=== PATIENT | female | born 1980 | race Caucasian/White ===

== ENCOUNTER 2016-08-21 08:21 | Outpatient (CLI) | payer MEDICAID ==
[~2016-08-21] VITALS: Ht 185.4 cm; Wt 87.2 kg
[~2016-08-21 08:21] MED LIST: FAMO20TA37 PO; PREN1TAB60 PO
[2016-08-21 08:35] VITALS: BP 97/61
== END 2016-08-21 10:37 | disposition home or self-care (01) ==
LOC: LDOP 08:21
PROVIDERS: ATTEND Obstetrics & Gynecology
DX: O26.893 Other specified pregnancy related conditions, third trimester (principal); R10.9 Unspecified abdominal pain; R11.2 Nausea with vomiting, unspecified; O99.343 Other mental disorders complicating pregnancy, third trimester; F41.8 Other specified anxiety disorders; F32.9 Major depressive disorder, single episode, unspecified; Z3A.35 35 weeks gestation of pregnancy
CPT/HCPCS: 59025; 81001; 87086; 99211; G0463

== ENCOUNTER → 2016-09-18 | Outpatient (CLI) | payer MEDICAID ==
[~2016-09-18] MED LIST changes: +IBUP-1222 PO; +LIDOCAINE 1%, 20ML ONE; +MISOPROSTOL 200 MCG TABLET ONE; +NEWBORN KIT ONE; +OXYC-302 PO
== END | disposition home or self-care (01) ==
LOC: LDOP 23:46
PROVIDERS: ATTEND Obstetrics & Gynecology
DX: O09.513 Supervision of elderly primigravida, third trimester (principal); O26.893 Other specified pregnancy related conditions, third trimester; R10.9 Unspecified abdominal pain; Z3A.00 Weeks of gestation of pregnancy not specified
CPT/HCPCS: 59025; 89060; 99211; G0463; Q0114

== ENCOUNTER 2016-09-19 12:02 | Inpatient (IN) | payer MEDICAID ==
[~2016-09-19] VITALS: Ht 185.4 cm; Wt 89.5 kg
[~2016-09-19 12:02] MED LIST changes: -IBUP-1222 PO; -LIDOCAINE 1%, 20ML ONE; -MISOPROSTOL 200 MCG TABLET ONE; -NEWBORN KIT ONE; -OXYC-302 PO
[2016-09-19] MEDS: D5%-LACTATED RINGERS 1,000 ML IV SCH ×2 (12:11→20:11)
[2016-09-19] MEDS ORDERED: OXYTOCIN 30U/ 0.9% NaCL 500ML 500 ML IV ONE (12:11)
[2016-09-19] MEDS ORDERED: FENTANYL PF 100 MCG/2ML ONE (12:14)
[2016-09-19] MEDS ORDERED: METOCLOPRAMIDE 5 MG/ML, 2ML IVPush PRN (12:30)
[2016-09-19] MEDS ORDERED: FENTANYL PF 100 MCG/2ML IV PRN (12:30)
[2016-09-19] MEDS ORDERED: FENTANYL PF 100 MCG/2ML IVPush PRN (12:30)
[2016-09-19] MEDS ORDERED: ONDANSETRON 2MG/ML, 2ML IVPush PRN (12:30)
[2016-09-19] MEDS ORDERED: TERBUTALINE 1 MG/ML, 1ML IVPush PRN (12:30)
[2016-09-19] MEDS ORDERED: SODIUM CITRATE/CITRIC ACID 30 ML UDC PO PRN (12:30)
[2016-09-19] MEDS: LACTATED RINGERS 1,000 ML IV SCH ×4 (12:38→22:18)
[2016-09-19] MEDS ORDERED: FENTANYL/BUPIV./NS/PF 250 ML EPIDCONT SCH (14:18)
[2016-09-19] MEDS ORDERED: LACTATED RINGERS 1,000 ML IVBOLUS PRN (14:30)
[2016-09-19] MEDS ORDERED: NALOXONE 0.4 MG/ML, 1ML IVPush PRN (14:30)
[2016-09-19] MEDS ORDERED: EPHEDRINE 50 MG/ML, 1ML IVPush PRN (14:30)
[2016-09-19] MEDS ORDERED: OXYTOCIN 30U/ 0.9% NaCL 500ML 500 ML IV PRN (16:00)
[2016-09-19] MEDS ORDERED: OXYTOCIN 30U/ 0.9% NaCL 500ML 500 ML ONE (16:12)
[2016-09-19] MEDS ORDERED: LACTATED RINGERS 1,000 ML INTUTE PRN (19:30)
[2016-09-19] MEDS ORDERED: LACTATED RINGERS 1,000 ML INTUTE SCH (19:30)
[2016-09-20] MEDS ORDERED: OXYTOCIN 30U/ 0.9% NaCL 500ML 500 ML IV SCH (01:51)
[2016-09-20] MEDS ORDERED: OXYcodone/APAP 5/325MG TABLET PO PRN (02:00)
[2016-09-20] MEDS ORDERED: ONDANSETRON 2MG/ML, 2ML IV PRN (02:00)
[2016-09-20] MEDS ORDERED: DOCUSATE 100 MG CAPSULE PO PRN (02:00)
[2016-09-20] MEDS ORDERED: ACETAMINOPHEN 325 MG TABLET PO PRN (02:00)
[2016-09-20] MEDS ORDERED: MISOPROSTOL 200 MCG TABLET SL PRN (02:00)
[2016-09-20] MEDS ORDERED: OXYTOCIN 30U/ 0.9% NaCL 500ML 500 ML ONE (02:08)
[2016-09-20] MEDS ORDERED: IBUPROFEN 600 MG TABLET ONE (02:24)
[2016-09-20] MEDS ORDERED: OXYcodone/APAP 5/325MG TABLET ONE (02:24)
[2016-09-20] MEDS: IBUPROFEN 600 MG TABLET PO PRN ×3 (02:30→18:33)
[2016-09-20 03:30] VITALS: BP 96/53
[2016-09-20] MEDS: PRENATAL VIT/IRON/FA 1 EACH TABLET PO SCH (07:38)
[2016-09-20 07:55] VITALS: BP 100/55
[2016-09-20 09:03] LABS: HEMOGLOBIN 10.7 g/dL (11.7-16.4)
[2016-09-20] MEDS: OXYcodone/APAP 5/325MG TABLET PO PRN ×2 (09:19→18:33)
[2016-09-20 09:32] LABS: DIFF TOTAL CELLS COUNTED 100 CELL DIFF
[2016-09-20 09:34] LABS: VERIFY COUNTS? YES
[2016-09-20 12:00] VITALS: BP 92/52
[2016-09-20 17:00] VITALS: BP 96/57
[2016-09-20 20:22] VITALS: BP 95/53
[2016-09-21] MEDS: IBUPROFEN 600 MG TABLET PO PRN ×2 (03:27→16:13)
[2016-09-21 07:45] VITALS: BP 94/51
[2016-09-21] MEDS: OXYcodone/APAP 5/325MG TABLET PO PRN ×2 (07:51→16:13)
[2016-09-21] MEDS: PRENATAL VIT/IRON/FA 1 EACH TABLET PO SCH (07:51)
[2016-09-21] MEDS ORDERED: IBUP-1222 PO (12:35)
[2016-09-21] MEDS ORDERED: OXYC-302 PO (12:35)
== END 2016-09-21 16:32 | disposition home or self-care (01) | DRG 775 ==
LOC: LDOP 12:02 → LDIP 12:11 → 2NW 09-20 03:29
PROVIDERS: ADMIT Obstetrics & Gynecology; ATTEND Obstetrics & Gynecology
PROC: 10D07Z6 Extraction of Products of Conception, Vacuum, Via Natural or Artificial Opening (ICD-10-PCS; principal; 2016-09-19)
PROC: 0W8NXZZ Division of Female Perineum, External Approach (ICD-10-PCS; 2016-09-19)
PROC: 10907ZC Drainage of Amniotic Fluid, Therapeutic from Products of Conception, Via Natural or Artificial Opening (ICD-10-PCS; 2016-09-19)
PROC: 00HU33Z Insertion of Infusion Device into Spinal Canal, Percutaneous Approach (ICD-10-PCS; 2016-09-19)
PROC: 3E0R3CZ (ICD-10-PCS; 2016-09-19)
DX: O75.81 Maternal exhaustion complicating labor and delivery (principal); O76 Abnormality in fetal heart rate and rhythm complicating labor and delivery; O69.1XX0 Labor and delivery complicated by cord around neck, with compression, not applicable or unspecified; Z37.0 Single live birth; Z3A.40 40 weeks gestation of pregnancy; Z88.6 Allergy status to analgesic agent; Z88.5 Allergy status to narcotic agent
CPT/HCPCS: 36415; 85025; 86850; 86900; J3010; J2590; J7120

== ENCOUNTER 2017-02-10 23:44 | Emergency (ER) | payer MEDICAID ==
[~2017-02-10] VITALS: Ht 185.4 cm; Wt 80.1 kg
[~2017-02-10 23:44] MED LIST changes: +IBUP-1222 PO; +OXYC-302 PO
[2017-02-11] MEDS ORDERED: IBUPROFEN 200 MG TABLET ONE (00:21)
[2017-02-11] MEDS ORDERED: IBUPROFEN 200 MG TABLET PO ONE (00:30)
[2017-02-11 00:37] LABS: HEMATOCRIT 42.4 % (34.6-47.8); HEMOGLOBIN 14.3 g/dL (11.7-16.4); WHITE BLOOD COUNT 5.8 x10^3/uL (3.4-10)
[2017-02-11 00:50] LABS: BLOOD UREA NITROGEN 12 mg/dL (7-18)
[2017-02-11 01:01] LABS: PATH.CAST-FLAG NOT PRESENT; SPERM-FLAG NOT PRESENT; SRC-FLAG NOT PRESENT; XTAL-FLAG NOT PRESENT; YLC-FLAG NOT PRESENT
[2017-02-11 01:36] VITALS: BP 94/57
== END 2017-02-11 02:17 | disposition home or self-care (01) ==
LOC: ED 02-11 00:48
DX: N83.202 Unspecified ovarian cyst, left side (principal); N93.8 Other specified abnormal uterine and vaginal bleeding
CPT/HCPCS: 36415; 76830; 80048; 81001; 82040; 84703; 85025; 99285

== ENCOUNTER 2017-11-18 09:44 | Emergency (ER) | payer MEDICAID ==
[~2017-11-18] VITALS: Ht 185.4 cm; Wt 80.5 kg
[2017-11-18 10:24] LABS: BASOPHILS % (AUTO) 0 % (0-1); EOSINOPHILS % (AUTO) 1 % (1-7); LYMPHOCYTES # (AUTO) 0.37 x10^3/uL (1-3.4); LYMPHOCYTES % (AUTO) 4 % (22-44); MD NO; MEAN CORPUSCULAR HEMOGLOBIN 31.3 pg (27.0-34.8); MEAN CORPUSCULAR HGB CONC 34.2 g/dL (32.4-35.8); MEAN CORPUSCULAR VOLUME 91.7 fL (80-100); MEAN PLATELET VOLUME 7.7 fL (7.4-10.4); MONOCYTES # (AUTO) 0.22 x10^3/uL (0.2-0.8); MONOCYTES % (AUTO) 2 % (2-9); NEUTROPHILS # (AUTO) 8.62 x10^3/uL (1.8-6.8); NEUTROPHILS % (AUTO) 93 % (42-75); PLATELET COUNT 215 x10^3/uL (130-400); RED BLOOD COUNT 4.51 x10^6/uL (3.82-5.3); RED CELL DISTRIBUTION WIDTH 11.9 % (9.6-15.2)
[2017-11-18 10:31] VITALS: BP 119/69
[2017-11-18 10:36] LABS: ALBUMIN 3.5 g/dL (3.4-5.0); ANION GAP 5 mmol/L (5-15); CHLORIDE 106 mmol/L (98-107)
[2017-11-18 10:42] LABS: MICROSCOPIC AUTO
[2017-11-18 10:49] LABS: CULTURE INDICATED? NO
[2017-11-18 10:55] LABS: ALANINE AMINOTRANSFERASE 20 U/L (12-78); ALKALINE PHOSPHATASE 44 U/L (45-117); BILIRUBIN,TOTAL 0.9 mg/dL (0.2-1.0); TOTAL PROTEIN 6.9 g/dL (6.4-8.2)
== END 2017-11-18 11:57 | disposition home or self-care (01) ==
LOC: ED 11:51
DX: O26.891 Other specified pregnancy related conditions, first trimester (principal); Z3A.01 Less than 8 weeks gestation of pregnancy
CPT/HCPCS: 36415; 76801; 80053; 81001; 84702; 85025; 99285

== ENCOUNTER 2018-11-25 08:43 | Outpatient (CLI) | payer OTHER, MEDICAID ==
[~2018-11-25] VITALS: Ht 185.4 cm; Wt 95.0 kg
[2018-11-25] MEDS ORDERED: ONDANSETRON ODT 4 MG ONE (09:26)
[2018-11-25 09:27] LABS: MICROSCOPIC INDICATED
[2018-11-25] MEDS ORDERED: ONDANSETRON ODT 4 MG PO ONE (09:30)
[2018-11-25] MEDS ORDERED: ACETAMINOPHEN 325 MG TABLET ONE (10:04)
[2018-11-25] MEDS ORDERED: TERBUTALINE 1 MG/ML, 1ML ONE (10:05)
[2018-11-25] MEDS ORDERED: ACETAMINOPHEN 325 MG TABLET PO ONE (10:30)
[2018-11-25] MEDS ORDERED: TERBUTALINE 1 MG/ML, 1ML SQ ONE (10:30)
[2018-11-25] MEDS ORDERED: FAMOTIDINE 20 MG TABLET ONE (11:04)
== END 2018-11-25 11:47 | disposition home or self-care (01) ==
LOC: LDOP 08:43
PROVIDERS: ATTEND Obstetrics & Gynecology
DX: O62.9 Abnormality of forces of labor, unspecified (principal); Z3A.32 32 weeks gestation of pregnancy
CPT/HCPCS: 81001; 87086; 96372; J3105; Q0162; 59025; 99201; G0463

== ENCOUNTER 2018-12-13 16:31 | Observation (INO) | payer OTHER, MEDICAID ==
[~2018-12-13] VITALS: Ht 185.4 cm; Wt 95.0 kg
[2018-12-13 20:40] LABS: BASOPHILS # (AUTO) 0.02 x10^3/uL (0-0.1); BASOPHILS % (AUTO) 0 % (0-1); EOSINOPHILS # (AUTO) 0.16 x10^3/uL (0-0.4); EOSINOPHILS % (AUTO) 2 % (1-7); LYMPHOCYTES # (AUTO) 1.02 x10^3/uL (1-3.4); LYMPHOCYTES % (AUTO) 15 % (22-44); MD NO; MEAN CORPUSCULAR HEMOGLOBIN 32.7 pg (27.0-34.8); MEAN CORPUSCULAR HGB CONC 33.7 g/dL (32.4-35.8); MEAN CORPUSCULAR VOLUME 97.1 fL (80-100); MEAN PLATELET VOLUME 6.9 fL (7.4-10.4); MONOCYTES # (AUTO) 0.27 x10^3/uL (0.2-0.8); MONOCYTES % (AUTO) 4 % (2-9); NEUTROPHILS # (AUTO) 5.59 x10^3/uL (1.8-6.8); NEUTROPHILS % (AUTO) 79 % (42-75); PLATELET COUNT 207 x10^3/uL (130-400); RED BLOOD COUNT 3.74 x10^6/uL (3.82-5.3); RED CELL DISTRIBUTION WIDTH 13.3 % (9.6-15.2)
[2018-12-13 20:50] LABS: ANION GAP 8 mmol/L (5-15); CALCIUM 8.2 mg/dL (8.5-10.1); CHLORIDE 108 mmol/L (98-107); CREATININE 0.65 mg/dL (0.55-1.02)
[2018-12-13] MEDS ORDERED: HEPARIN 5,000 UNITS/ML, 1ML ONE (21:36)
[2018-12-13] MEDS ORDERED: HEPARIN 5,000 UNITS/ML, 1ML IV PRN (22:30)
[2018-12-13] MEDS ORDERED: HEPARIN 25,000 UNITS/500ML PMX 500 ML IV PRN (22:30)
[2018-12-13] MEDS ORDERED: HEPARIN 5,000 UNITS/ML, 1ML IV ONE (22:30)
[2018-12-13 22:34] VITALS: BP 129/73
[2018-12-13] MEDS ORDERED: ACETAMINOPHEN 325 MG TABLET PO PRN (22:45)
[2018-12-13] MEDS ORDERED: FAMOTIDINE 20 MG TABLET PO SCH (22:50)
[2018-12-13] MEDS ORDERED: ACETAMINOPHEN 325 MG TABLET ONE (22:51)
[2018-12-13] MEDS ORDERED: FAMOTIDINE 20 MG TABLET ONE (22:52)
[2018-12-13] MEDS: LACTATED RINGERS 1,000 ML IV SCH (22:57)
[2018-12-14] MEDS: LACTATED RINGERS 1,000 ML IV SCH (04:40)
[2018-12-14] MEDS ORDERED: HEPARIN 1,000 UNITS/ML, 1ML IVPush ONE (05:15)
[2018-12-14] MEDS ORDERED: HEPARIN 5,000 UNITS/ML, 1ML ONE (05:19)
[2018-12-14] MEDS ORDERED: ENOXAPARIN 100 MG/ML SQ SCH (08:30)
[2018-12-14] MEDS ORDERED: PHARMACY INSTRUCTION MC PRN (08:30)
[2018-12-14] MEDS ORDERED: ENOX100S4 SQ (08:49)
== END 2018-12-14 11:58 | disposition home or self-care (01) ==
LOC: LDOP 16:31 → LDIP 18:20
PROVIDERS: ADMIT Obstetrics & Gynecology; ATTEND Internal Medicine
DX: O22.33 Deep phlebothrombosis in pregnancy, third trimester (principal); I82.432 Acute embolism and thrombosis of left popliteal vein; O99.113 Other diseases of the blood and blood-forming organs and certain disorders involving the immune mechanism complicating pregnancy, third trimester; D68.69 Other thrombophilia; Z3A.35 35 weeks gestation of pregnancy; Z88.5 Allergy status to narcotic agent
CPT/HCPCS: 36415; 80048; 85025; 85520; 93005; 93306; 93971; 96365; 96366; 96372; 96376; G0378; J1644; J1650; J7120; 59025; 96360; 96361; 96374; 96375; 99211; G0463

== ENCOUNTER 2019-01-13 05:52 | Inpatient (IN) | payer OTHER, MEDICAID ==
[~2019-01-13] VITALS: Ht 185.4 cm; Wt 93.6 kg
[2019-01-14 12:00] VITALS: BP 119/77
== END 2019-01-14 15:10 | disposition home or self-care (01) | DRG 807 ==
LOC: LDIP 05:52 → 2NW 16:35
PROVIDERS: ADMIT Obstetrics & Gynecology; ATTEND Obstetrics & Gynecology
PROC: 10E0XZZ Delivery of Products of Conception, External Approach (ICD-10-PCS; principal; 2019-01-13)
PROC: 3E033VJ Introduction of Other Hormone into Peripheral Vein, Percutaneous Approach (ICD-10-PCS; 2019-01-13)
DX: O80 Encounter for full-term uncomplicated delivery (principal); Z37.0 Single live birth; Z3A.39 39 weeks gestation of pregnancy
CPT/HCPCS: 36415; 85025; 85610; 85730; 86850; 86900; G0378; J1650; J3010; J2590; J7120

== ENCOUNTER 2019-06-16 17:02 | Emergency (ER) | payer OTHER, MEDICAID ==
[~2019-06-16] VITALS: Ht 185.4 cm; Wt 87.2 kg
[~2019-06-16 17:02] MED LIST changes: +ENOX100S4 SQ
--- NOTE | 2019-06-16 17:47 | NUR ---
IV START. LABS DRAWN. IVF RUNNING. PER VERBAL ORDER FROM
[2019-06-16] MEDS ORDERED: LORazepam 1MG TABLET ONE (18:30)
[2019-06-16] MEDS ORDERED: ACETAMINOPHEN 500 MG TABLET PO ONE (18:30)
[2019-06-16] MEDS ORDERED: LORazepam 1MG TABLET PO ONE (18:30)
[2019-06-16] MEDS ORDERED: ACETAMINOPHEN 500 MG TABLET ONE (18:30)
[2019-06-16 18:46] LABS: HCG UR SG 1.009 (1.003-1.030); MICROSCOPIC AUTO
[2019-06-16 18:50] LABS: CULTURE INDICATED? NO
--- NOTE | 2019-06-16 18:52 | NUR ---
REPORT FROM KELLIE
[2019-06-16] MEDS ORDERED: SODIUM CHLORIDE 0.9% 1,000ML IVBOLUS ONE (19:00)
[2019-06-16 19:04] LABS: BASOPHILS # (AUTO) 0.04 x10^3/uL (0-0.1); BASOPHILS % (AUTO) 1 % (0-1); EOSINOPHILS # (AUTO) 0.07 x10^3/uL (0-0.4); EOSINOPHILS % (AUTO) 1 % (1-7); LYMPHOCYTES # (AUTO) 2.91 x10^3/uL (1-3.4); LYMPHOCYTES % (AUTO) 52 % (22-44); MD NO; MEAN CORPUSCULAR HEMOGLOBIN 33.6 pg (27.0-34.8); MEAN CORPUSCULAR HGB CONC 34.2 g/dL (32.4-35.8); MEAN CORPUSCULAR VOLUME 98.2 fL (80-100); MEAN PLATELET VOLUME 7.8 fL (7.4-10.4); MONOCYTES # (AUTO) 0.46 x10^3/uL (0.2-0.8); MONOCYTES % (AUTO) 8 % (2-9); NEUTROPHILS % (AUTO) 38 % (42-75); PLATELET COUNT 274 x10^3/uL (130-400); RED BLOOD COUNT 4.59 x10^6/uL (3.82-5.3)
[2019-06-16 19:06] LABS: ALBUMIN 3.9 g/dL (3.4-5.0); ANION GAP 12 mmol/L (5-15); CALCIUM 8.3 mg/dL (8.5-10.1); CHLORIDE 103 mmol/L (98-107)
[2019-06-16 19:10] LABS: ALANINE AMINOTRANSFERASE 76 U/L (12-78); ALKALINE PHOSPHATASE 79 U/L (45-117); BILIRUBIN,TOTAL 0.9 mg/dL (0.2-1.0); CREATININE 0.81 mg/dL (0.55-1.02)
--- NOTE | 2019-06-16 19:32 | NUR ---
PT IS SLEEPING. FLUIDS COMPLETED. NO NEEDS AT THIS TIME.
[2019-06-16 20:35] VITALS: BP 148/85
--- NOTE | 2019-06-16 20:35 | NUR ---
Patient/Caregiver given discharge instructions and they have confirmed that they understand the instructions. Patient ambulatory with steady gait.
== END 2019-06-16 20:37 | disposition home or self-care (01) ==
LOC: ED 18:31
DX: R41.82 Altered mental status, unspecified (principal)
CPT/HCPCS: 36415; 80053; 81001; 81025; 83690; 85025; 93005; 99284; J7030

== ENCOUNTER → 2019-12-29 | Outpatient (CLI) | payer OTHER, MEDICAID ==
[~2019-12-29] MED LIST changes: +Asprin PO; +BUPR150T73 PO; +FOLI0.4T2 PO; +MULT-449 PO; +NALT50TA PO; +VITA1CAP PO
[2019-12-29 09:08] LABS: BASOPHILS # (AUTO) 0.04 x10^3/uL (0-0.1); BASOPHILS % (AUTO) 1 % (0-1); EOSINOPHILS # (AUTO) 0.13 x10^3/uL (0-0.4); EOSINOPHILS % (AUTO) 2 % (1-7); LYMPHOCYTES # (AUTO) 1.42 x10^3/uL (1-3.4); LYMPHOCYTES % (AUTO) 24 % (22-44); MD NO; MEAN CORPUSCULAR HEMOGLOBIN 32.9 pg (27.0-34.8); MEAN CORPUSCULAR HGB CONC 33.1 g/dL (32.4-35.8); MEAN CORPUSCULAR VOLUME 99.4 fL (80-100); MEAN PLATELET VOLUME 7.8 fL (7.4-10.4); MONOCYTES # (AUTO) 0.32 x10^3/uL (0.2-0.8); MONOCYTES % (AUTO) 6 % (2-9); NEUTROPHILS # (AUTO) 3.93 x10^3/uL (1.8-6.8); NEUTROPHILS % (AUTO) 67 % (42-75); PLATELET COUNT 216 x10^3/uL (130-400); RED BLOOD COUNT 4.53 x10^6/uL (3.82-5.3)
[2019-12-29 09:15] LABS: ANION GAP 4 mmol/L (5-15); CALCIUM 8.9 mg/dL (8.5-10.1); CHLORIDE 109 mmol/L (98-107); CREATININE 0.85 mg/dL (0.55-1.02)
== END | disposition home or self-care (01) ==
LOC: STAR 08:07
PROVIDERS: ATTEND Obstetrics & Gynecology
DX: Z01.818 Encounter for other preprocedural examination (principal); Z11.59 Encounter for screening for other viral diseases; N92.0 Excessive and frequent menstruation with regular cycle; Z88.6 Allergy status to analgesic agent
CPT/HCPCS: 36415; 80048; 81025; 85025; 87635

== ENCOUNTER 2020-01-04 14:00 | Day surgery (SDC) | payer OTHER, MEDICAID ==
[~2020-01-04] VITALS: Ht 185.4 cm; Wt 79.6 kg
[2020-01-04] MEDS ORDERED: LACTATED RINGERS 1,000 ML IV SCH (14:29)
[2020-01-04 14:36] VITALS: BP 176/111
[2020-01-04 14:55] LABS: HCG UR SG 1.018 (1.003-1.030)
[2020-01-04] MEDS ORDERED: CHLORHEXIDINE 15 ML UDC MM ONE (15:00)
[2020-01-04] MEDS ORDERED: MIDAZOLAM 1 MG/ML, 2ML ONE (15:26)
[2020-01-04] MEDS ORDERED: FENTANYL PF 100 MCG/2ML ONE ×2 (15:26→16:51)
[2020-01-04] MEDS ORDERED: KETOROLAC 30 MG/1 ML ONE (15:50)
[2020-01-04] MEDS ORDERED: LIDOCAINE-MPF 2% ,5ML ONE (15:50)
[2020-01-04] MEDS ORDERED: DEXAMETHASONE 4 MG/ML, 1ML ONE (15:53)
[2020-01-04] MEDS ORDERED: SUCCINYLCHOLINE 20 MG/ML, 10ML ONE (15:53)
[2020-01-04] MEDS ORDERED: PROPOFOL 10 MG/ML, 20ML ONE (15:53)
[2020-01-04] MEDS ORDERED: ONDANSETRON 2MG/ML, 2ML ONE (15:53)
[2020-01-04] MEDS ORDERED: SODIUM CHLORIDE 0.9% 100 ML ONE (15:58)
[2020-01-04] MEDS ORDERED: VASOPRESSIN 20 UNIT/ML, 1ML ONE (15:58)
[2020-01-04] MEDS ORDERED: OXYcodone 5 MG/5 ML ORAL.SOL UDC PO PRN (16:00)
[2020-01-04] MEDS ORDERED: ONDANSETRON 2MG/ML, 2ML IVPush PRN (16:00)
[2020-01-04] MEDS ORDERED: HYDROmorphone 1 MG/ML, 1ML INJ IVPush PRN (16:00)
[2020-01-04] MEDS ORDERED: MEPERIDINE/PF 25MG/0.5ML IVPush PRN (16:00)
[2020-01-04] MEDS ORDERED: ACETAMINOPHEN 325 MG TABLET PO PRN (16:00)
[2020-01-04] MEDS ORDERED: PROMETHAZINE 25 MG/ML, 1ML IVPush PRN (16:00)
[2020-01-04] MEDS ORDERED: hydrALAzine 20 MG/ML, 1ML IV PRN (16:00)
[2020-01-04] MEDS ORDERED: EPHEDRINE 50 MG/ML, 1ML IVPush PRN (16:00)
[2020-01-04] MEDS ORDERED: LABETALOL 5MG/ML, 20ML IV PRN (16:00)
[2020-01-04] MEDS ORDERED: hydrALAzine 20 MG/ML, 1ML ONE (16:42)
[2020-01-04] MEDS: FENTANYL PF 100 MCG/2ML IV PRN ×2 (16:50→17:10)
[2020-01-04] MEDS ORDERED: OXYcodone 5 MG/5 ML ORAL.SOL UDC ONE (16:51)
== END 2020-01-04 19:25 | disposition home or self-care (01) ==
LOC: OR 14:00
PROVIDERS: ATTEND Obstetrics & Gynecology
DX: N92.0 Excessive and frequent menstruation with regular cycle (principal); I10 Essential (primary) hypertension; F32.9 Major depressive disorder, single episode, unspecified; Z79.82 Long term (current) use of aspirin; Z79.899 Other long term (current) drug therapy; Z88.5 Allergy status to narcotic agent; Z86.718 Personal history of other venous thrombosis and embolism
CPT/HCPCS: 58563; 81025; J0330; J0360; J1100; J1885; J2250; J2405; J2704; J3010; J7120

== ENCOUNTER 2020-09-06 06:23 | Emergency (ER) | payer OTHER, MEDICAID ==
[~2020-09-06] VITALS: Ht 185.4 cm; Wt 80.0 kg
[~2020-09-06 06:23] MED LIST changes: -FOLI0.4T2 PO; +FOLI0.4T5 PO; -OXYC-302 PO; +OXYC1TAB14 PO
[2020-09-06] MEDS ORDERED: ONDANSETRON ODT 4 MG ONE (06:35)
[2020-09-06] MEDS ORDERED: THIAMINE 100MG TABLET ONE (06:35)
--- NOTE | 2020-09-06 06:39 | NUR ---
THIS IS A 40F BIB EMS FROM [facility] FOR ETOH/ SI/ CP. PER PT LAST ETOH INTAKE WAS AROUND 0200. PT HAS HX OF HTN AND DVT. UPON ARRIVAL TO ED, PT DENIES ALL SI. PT CONNECTED TO ALL MONITORING VSS, NADN RESTING ON GURNEY.
[2020-09-06] MEDS ORDERED: MAALOX/HYOSCYAMINE/LIDOCAINE 45 ML BTL ONE (06:40)
--- NOTE | 2020-09-06 06:41 | NUR ---
REPORT TO SANDRA BEANORACLE DATABASE DEVELOPER OF CARE
--- NOTE | 2020-09-06 06:48 | NUR ---
REPORT RECEIVED FROM GENEVA AMEZCUA FOR TRANSFER OF PATIENT CARE.
[2020-09-06] MEDS ORDERED: ONDANSETRON ODT 4 MG PO ONE (07:00)
[2020-09-06] MEDS ORDERED: THIAMINE 100MG TABLET PO ONE (07:00)
[2020-09-06] MEDS ORDERED: MAALOX/HYOSCYAMINE/LIDOCAINE 45 ML BTL PO ONE (07:00)
--- NOTE | 2020-09-06 07:01 | NUR ---
PATIENT WALKED TO BATHROOM WITH ASSISTANCE OF RN, URINE SAMPLE COLLECTED AND SENT TO LAB. PATIENT BACK IN [facility], CONNECTED TO MONITORS, NADN, SIDE RAILS UP X2.
[2020-09-06 07:02] LABS: BASOPHILS % (AUTO) 1 % (0-1); EOSINOPHILS % (AUTO) 1 % (1-7); LYMPHOCYTES % (AUTO) 59 % (22-44); MEAN CORPUSCULAR HEMOGLOBIN 33.9 pg (27.0-34.8); MEAN CORPUSCULAR HGB CONC 34.9 g/dL (32.4-35.8); MEAN PLATELET VOLUME 7.7 fL (7.4-10.4); MONOCYTES % (AUTO) 6 % (2-9); NEUTROPHILS % (AUTO) 34 % (42-75); PLATELET COUNT 209 x10^3/uL (130-400); RED BLOOD COUNT 4.25 x10^6/uL (3.82-5.3); RED CELL DISTRIBUTION WIDTH 11.9 % (9.6-15.2)
[2020-09-06 07:10] LABS: ALBUMIN 3.5 g/dL (3.4-5.0); ANION GAP 9 mmol/L (5-15); CALCIUM 7.6 mg/dL (8.5-10.1); CHLORIDE 106 mmol/L (98-107)
[2020-09-06 07:11] LABS: SALICYLATE LEVEL < 1.7 mg/dL (2.8-20.0)
[2020-09-06 07:15] LABS: CREATININE 0.88 mg/dL (0.55-1.02)
[2020-09-06 07:16] LABS: ALANINE AMINOTRANSFERASE 57 U/L (12-78); ALKALINE PHOSPHATASE 63 U/L (45-117); BILIRUBIN,TOTAL 0.6 mg/dL (0.2-1.0)
[2020-09-06 07:30] LABS: AMPHETAMINE SCREEN, URINE Negative (Negative); BARBITURATE SCREEN, URINE Negative (Negative); CANNABINOID SCREEN, URINE Negative (Negative); COCAINE SCREEN, URINE Negative (Negative); METHADONE SCREEN, URINE Negative (Negative); OPIATE SCREEN, URINE Negative (Negative)
[2020-09-06 07:31] LABS: BENZODIAZEPINE SCREEN, URINE Positive (Negative)
--- NOTE | 2020-09-06 07:56 | NUR ---
PATIENT RESTING IN GURNEY WITH EYES CLOSED, RESP EVEN AND UNLABORED, VSS, SIDE RAILS UP X2, FREQUENT ROUNDING IN PLACE.
--- NOTE | 2020-09-06 08:03 | NUR ---
Elana from [facility] called and they found the patients wallet there. 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
--- NOTE | 2020-09-06 08:05 | NUR ---
Bony [phone]
[2020-09-06 08:29] LABS: MD SCAN
--- NOTE | 2020-09-06 09:17 | NUR ---
PATIENT RESTING IN GURNEY WITH EYES CLOSED, RESP EVEN AND UNLABORED, VSS, SIDE RAILS UP X2, FREQUENT ROUNDING IN PLACE.
--- NOTE | 2020-09-06 10:18 | NUR ---
PATIENT RESTING IN GURNEY WITH EYES CLOSED, RESP EVEN AND UNLABORED, VSS, SIDE RAILS UPX 2, FREQUENT ROUNDING.
--- NOTE | 2020-09-06 10:23 | NUR ---
BREAKSFAST TRAY ORDERED.
--- NOTE | 2020-09-06 11:07 | NUR ---
SIGNIFICANT OTHER AT BEDSIDE.
--- NOTE | 2020-09-06 11:15 | NUR ---
PATIENT MUKESH 0.308, PATIENT REQUESTING PAIN MEDICINE FOR HEADACHE. ERMD NOTIFIED.
--- NOTE | 2020-09-06 11:45 | NUR ---
PATIENT BELONGINGS AND BACKPACK TAKEN AND LOCKED IN CABINET, LEGAL HOLD PAPERWORK FOUND IN ROOM, GIVEN TO ERMD TO FILL OUT. LELY GAYTAN TO SEE ONCE PATIENT MORE SOBER. PATIENT DENIES SI THOUGHTS AT THIS TIME. FREQUENT ROUNDING IN PLACE.
[2020-09-06] MEDS ORDERED: ACETAMINOPHEN 500 MG TABLET ONE (11:47)
[2020-09-06] MEDS ORDERED: POTASSIUM CHLORIDE 20 MEQ TAB.ER.PRT PO ONE ×2 (12:00→15:30)
[2020-09-06] MEDS ORDERED: ACETAMINOPHEN 325 MG TABLET PO/NG ONE (12:00)
[2020-09-06] MEDS ORDERED: POTASSIUM CHLORIDE 20 MEQ TAB.ER.PRT ONE ×2 (12:03→15:37)
[2020-09-06] MEDS ORDERED: PLEASE ENTER HEIGHT AND WEIGHT MC SCH (12:30)
--- NOTE | 2020-09-06 12:39 | NUR ---
BREAK RN. PT LUNCH PROVIDED. NO WANTS OR NEEDS EXPRESSED.
--- NOTE | 2020-09-06 13:33 | NUR ---
PATIENT LAYING IN GURNEY TALKING ON PHONE, NADN, VSS, SIDE RAILS UP X2, FREQUENT ROUNDING IN PLACE.
--- NOTE | 2020-09-06 14:40 | NUR ---
PATIENT SITTING IN [place], AMRIT, VSS, FREQUENT ROUNDING IN PLACE.
[2020-09-06] MEDS ORDERED: KETOROLAC 30 MG/1 ML IM ONE (15:30)
[2020-09-06] MEDS ORDERED: KETOROLAC 30 MG/1 ML ONE (15:37)
[2020-09-06 15:41] VITALS: BP 142/93
--- NOTE | 2020-09-06 16:11 | NUR ---
Legal hold decertified by [employer]. Patient and significant other given discharge instructions and they have confirmed that they understand the instructions. Patient stable and ambulatory with steady gait from ED with significant other to private vehicle.
== END 2020-09-06 16:12 | disposition home or self-care (01) ==
LOC: ED 11:14
DX: F10.220 Alcohol dependence with intoxication, uncomplicated (principal); E87.6 Hypokalemia; Y90.0 Blood alcohol level of less than 20 mg/100 ml
CPT/HCPCS: 36415; 80053; 80143; 80307; 80320; 84703; 85025; 93005; 96372; 99285; J1885; Q0162; 80179; G0480

== ENCOUNTER 2020-11-25 19:37 | Emergency (ER) | payer MEDICAID, OTHER ==
[~2020-11-25] VITALS: Ht 185.4 cm; Wt 78.7 kg
--- NOTE | 2020-11-25 23:30 | NUR ---
called in the lobby. no answer.
--- NOTE | 2020-11-26 00:17 | NUR ---
PT TO ROOM FROM LOBBY
[2020-11-26 01:04] LABS: MEAN CORPUSCULAR HEMOGLOBIN 35.1 pg (27.0-34.8); MEAN CORPUSCULAR HGB CONC 33.6 g/dL (32.4-35.8); MEAN PLATELET VOLUME 7.8 fL (7.4-10.4); PLATELET COUNT 218 x10^3/uL (130-400); RED BLOOD COUNT 3.66 x10^6/uL (3.82-5.3); RED CELL DISTRIBUTION WIDTH 13.4 % (9.6-15.2)
[2020-11-26 01:11] VITALS: BP 125/82
[2020-11-26 01:11] LABS: ALANINE AMINOTRANSFERASE 43 U/L (12-78); ALBUMIN 3.1 g/dL (3.4-5.0); ANION GAP 11 mmol/L (5-15); CALCIUM 8.7 mg/dL (8.5-10.1); CHLORIDE 108 mmol/L (98-107); CREATININE 0.72 mg/dL (0.55-1.02)
[2020-11-26 01:15] LABS: ALKALINE PHOSPHATASE 64 U/L (45-117); BILIRUBIN,TOTAL 0.2 mg/dL (0.2-1.0)
[2020-11-26 01:30] LABS: BAND#(MANUAL) 0.21 x10^3/uL; BANDS%(MANUAL) 4 % (0-7); BASOS#(MANUAL) 0.21 x10^3/uL (0-0.1); BASOS% (MANUAL) 4 % (0-1); EOS#(MANUAL) 0.57 x10^3/uL (0.0-0.4); EOS% (MANUAL) 11 % (1-7); LYMPH#(MANUAL) 2.34 x10^3/uL (1-3.4); LYMPHS% (MANUAL) 45 % (22-44); MONOS#(MANUAL) 0.16 x10^3/uL (0.3-2.7); MONOS% (MANUAL) 3 % (2-9); REACTIVE LYMPHS # (MANUAL) 0.21 x10^3/uL (0-0); REACTIVE LYMPHS % (MANUAL) 4 % (0-0); SEG#(MANUAL) 1.51 x10^3/uL (1.8-6.8); SEGS% (MANUAL) 29 % (42-75)
[2020-11-26 01:31] LABS: <PLATELET ESTIMATE> ADEQUATE; <RBC MORPHOLOGY> NORMAL; SMALL PLATELETS 1+
== END 2020-11-26 02:08 | disposition home or self-care (01) ==
LOC: ED 20:07
DX: R60.0 Localized edema (principal); R07.89 Other chest pain; E88.09 Other disorders of plasma-protein metabolism, not elsewhere classified; F10.10 Alcohol abuse, uncomplicated; Z20.822 Contact with and (suspected) exposure to COVID-19; R94.31 Abnormal electrocardiogram [ECG] [EKG]; Z86.718 Personal history of other venous thrombosis and embolism; Y90.0 Blood alcohol level of less than 20 mg/100 ml
CPT/HCPCS: 36415; 71045; 80053; 80320; 84703; 85025; 93005; 93971; 99285; U0003; U0005; G0480